=== PATIENT | male | born 1935 | race Caucasian/White ===

== ENCOUNTER 2016-08-22 23:27 | Observation (INO) | payer MEDICARE, BC ==
[2016-08-22] MEDS ORDERED: Sodium Chloride 0.9% 10 ML Syringe FLUSH PRN (23:28)
[2016-08-22] MEDS ORDERED: Ondansetron 4 MG/2 ML SDV IVPUSH ONE (23:30)
[2016-08-23] MEDS ORDERED: Sodium Chloride 0.9% 1,000 ML IV SCH ×2 (01:00→02:30)
--- NOTE | 2016-08-23 01:32 | EDM.PDOC ---
ED HPI GENERAL MEDICAL PROBLEM - General Chief Complaint: Cardiovascular Problem Stated Complaint: [facility] Time Seen by Provider: 08/22/16 23:28 Source of Information: Reports: Patient, EMS, Family History Limitations: Reports: Other (Dementia) - History of Present Illness INITIAL COMMENTS - FREE TEXT/NARRATIVE: This 81-year-old white male arrived by EMS. His son who is a retired family physician tells me that this patient was at home he had been doing well he suddenly said that he needed to go to the bathroom right away. He got up went to the bathroom it's not certain what the results were that when he came back he suddenly became weak and very sweaty. His son checked his pulse and found to be irregular as if he was having PVCs. There was no history of any nausea or vomiting although he vomited the same as she got to the ER. The patient is not able to give much of a history due to his dementia. There was no history of any chest pain. There is been no fever no history of abdominal pain no history of any urinary difficulties. Most of the history is given by his son who is not actually present when this episode happened. This patient moved to the area about 4 months ago and lives in assisted living. - Related Data Allergies Allergy/AdvReac Type Severity Reaction Status Date / Time No Known Allergies Allergy Verified 08/22/16 23:42 Home Meds: Home Meds Aspirin [Ecotrin] 81 mg PO DAILY 08/22/16 [History] Hydrochlorothiazide 25 mg PO DAILY 08/22/16 [History] Lisinopril 2.5 mg PO DAILY 08/22/16 [History] Multivitamin [Multi-Vitamin Daily] 1 tab PO DAILY 08/22/16 [History] Simvastatin [Zocor] 80 mg PO BEDTIME 08/22/16 [History] Donepezil HCl [Aricept] 10 mg PO BEDTIME 08/23/16 [History] Past Medical History HEENT History: Reports: Hard of Hearing Other HEENT History: without teeth, usually wears dentures Cardiovascular History: Reports: Arrhythmia, Heart Failure (History of congestive heart failure thought to be simply a IV fluid overload), Heart Murmur , High Cholesterol Respiratory History: Reports: PE (History of pulmonary emboli bilaterally after a hip injury) Other Respiratory History: bilateral pulmonary emboli Gastrointestinal History: Reports: GERD Hematologic History: Reports: Blood Transfusion(s) - Past Surgical History Musculoskeletal Surgical History: Reports: Hip Replacement, Other (See Below) Other Musculoskeletal Surgeries/Procedures:: traumatic injury left hip Social & Family History - Tobacco Use Smoking Status *Q: Never Smoker Second Hand Smoke Exposure: No - Caffeine Use Caffeine Use: Reports: Coffee - Recreational Drug Use Recreational Drug Use: No ED ROS GENERAL - Review of Systems Review Of Systems: See Below Constitutional: Reports: Weakness, Diaphoresis HEENT: Reports: No Symptoms Respiratory: Reports: No Symptoms Cardiovascular: Reports: No Symptoms Endocrine: Reports: No Symptoms GI/Abdominal: Reports: No Symptoms : Reports: No Symptoms Musculoskeletal: Reports: No Symptoms Skin: Reports: No Symptoms Neurological: Reports: No Symptoms Psychiatric: Reports: No Symptoms ED EXAM, GENERAL - Physical Exam Exam: See Below Exam Limited By: Other (Dementia) General Appearance: Alert, WD/WN (Initially a little bit pale looking but he vomited soon after arriving in the ER and afterwards looks normal.) Eye Exam: Bilateral Eye: PERRL Ears: Normal TMs Nose: Normal Inspection Throat/Mouth: Normal Inspection Head: Atraumatic Neck: Normal Inspection Respiratory/Chest: No Respiratory Distress, Normal Breath Sounds Cardiovascular: Regular Rate, Rhythm, Other (Moderate to frequent number of PVCs.) Peripheral Pulses: 2+: Radial (L), Radial (R), Posterior Tibial (L), Posterior Tibial (R) GI/Abdominal: Soft, Non-Tender, Other (Bladder not distended) Back Exam: Normal Inspection Extremities: Normal Inspection, Normal Range of Motion, Non-Tender, No Pedal Edema Neurological: Alert, CN II-XII Intact, Normal Reflexes, No Motor/Sensory Deficits Psychiatric: Normal Affect Skin Exam: Warm, Dry, Intact Course - Vital Signs Last Recorded V/S: Last Vital Signs Temp 35.7 C 08/22/16 23:36 Pulse 81 08/22/16 23:36 Resp 18 08/23/16 01:03 BP 117/78 08/23/16 01:03 Pulse Ox 95 08/23/16 01:03 - Orders/Labs/Meds Orders: Active Orders 24 hr Category Date Time Status EKG Documentation Completion [RC] ASDIRECTED Care 08/22/16 23:30 Active Chest 1V Frontal [CR] Urgent Exams 08/23/16 00:01 Taken CULTURE BLOOD [BC] Urgent Lab 08/23/16 01:15 Received CULTURE BLOOD [BC] Urgent Lab 08/23/16 01:19 Received UA W/MICROSCOPIC [URIN] Urgent Lab 08/22/16 23:28 Uncollected Sodium Chloride 0.9% [Normal Saline] 1,000 ml Med 08/23/16 01:00 Active IV ASDIRECTED Sodium Chloride 0.9% [Saline Flush] Med 08/22/16 23:28 Active 10 ml FLUSH ASDIRECTED PRN Blood Culture x2 Reflex Set [OM.PC] Urgent Oth 08/23/16 00:57 Ordered Saline Lock Insert [OM.PC] Urgent Oth 08/22/16 23:28 Ordered EKG 12 Lead [EK] Urgent Ther 08/22/16 23:28 Ordered Medication Orders Sodium Chloride (Normal Saline) 1,000 mls @ 85 mls/hr IV ASDIRECTED DUC Last Admin: 08/23/16 01:09 Dose: 85 mls/hr Sodium Chloride (Saline Flush) 10 ml FLUSH ASDIRECTED PRN PRN Reason: Keep Vein Open Last Admin: 08/22/16 23:44 Dose: 10 ml Labs: Laboratory Tests 08/22/16 08/22/16 08/22/16 Range/Units 23:35 23:35 23:35 WBC 14.6 H (4.5-11.0) K/uL RBC 4.47 (4.30-5.90) M/uL Hgb 14.3 (12.0-15.0) g/dL Hct 41.6 (40.0-54.0) % MCV 93 (80-98) fL MCH 32 H (27-31) pg MCHC 34 (32-36) % Plt Count 152 (150-400) K/uL Neut % (Auto) 86 H (36-66) % Lymph % (Auto) 7 L (24-44) % [place]renshaw % (Auto) 7 H (2-6) % Eos % (Auto) 1 L (2-4) % Baso % (Auto) 0 (0-1) % Sodium 139 L (140-148) mmol/L Potassium 3.6 (3.6-5.2) mmol/L Chloride 102 (100-108) mmol/L Carbon Dioxide 28 (21-32) mmol/L Anion Gap 12.6 (5.0-14.0) mmol/L BUN 14 (7-18) mg/dL Creatinine 0.9 (0.8-1.3) mg/dL Est Cr Clr Drug Dosing 68.26 mL/min Estimated GFR (MDRD) > 60 (>60) Glucose 181 H (74-106) mg/dL Lactic Acid 2.7 H (0.4-2.0) mmol/L Calcium 9.1 (8.5-10.1) mg/dL Total Bilirubin 0.5 (0.2-1.0) mg/dL AST 22 (15-37) U/L ALT 20 (12-78) U/L Alkaline Phosphatase 93 (46-116) U/L Troponin I < 0.017 (0.000-0.056) ng/mL Total Protein 6.9 (6.4-8.2) g/dL Albumin 3.5 (3.4-5.0) g/dL Globulin 3.4 (2.3-3.5) g/dL Albumin/Globulin Ratio 1.0 L (1.2-2.2) Meds: Medications Generic Name Dose Route Start Last Admin Trade Name Freq PRN Reason Stop Dose Admin Sodium Chloride 1,000 mls @ 85 mls/hr 08/23/16 01:00 08/23/16 01:09 Normal Saline IV 85 mls/hr ASDIRECTED DUC Administration Sodium Chloride 10 ml 08/22/16 23:28 08/22/16 23:44 Saline Flush FLUSH 10 ml ASDIRECTED PRN Administration Keep Vein Open Discontinued Medications Generic Name Dose Route Start Last Admin Trade Name Freq PRN Reason Stop Dose Admin Ondansetron HCl 4 mg 08/22/16 23:30 08/23/16 01:15 Zofran IVPUSH 08/22/16 23:31 Not Given ONETIME ONE - Radiology Interpretation Free Text/Narrative:: Chest x-ray shows no evidence of acute infiltrate. There is a small amount of atelectasis in the left base. Heart size normal. - Re-Assessments/Exams Free Text/Narrative Re-Assessment/Exam: 08/23/16 01:35 An EKG shows a sinus rhythm at 80 bpm there is a prolonged TN interval left axis deviation. There is a Q-wave in a the area. Possibly Q-wave in lead 3 there is nothing to suggest an acute MN. There is not an old EKG to compare with Treatment course when EMS unloaded the patient he was laid supine just for a brief moment and at that time he suddenly became nauseated and vomited a small amount. His head was then raised and his nausea has subsided. He never received and any anti-medic. Vital signs have remained stable while here in the ER. We've not been able to obtain a urinalysis yet. He may need to be catheterized. I spoke with Dr. Willard. My impression is that there are signs that this patient may be septic. Blood cultures have been done but antibiotics have not been started. Departure - Departure Time of Disposition: 01:48 Disposition: Admitted As Inpatient 66 Condition: Fair Clinical Impression: Near syncope, Sepsis Referrals: PCP,None [Primary Care Provider] - Forms: ED Department Discharge - My Orders Last 24 Hours: My Active Orders 08/22/16 23:28 UA W/MICROSCOPIC [URIN] Urgent Sodium Chloride 0.9% [Saline Flush] 10 ml FLUSH ASDIRECTED PRN Saline Lock Insert [OM.PC] Urgent EKG 12 Lead [EK] Urgent 08/22/16 23:30 EKG Documentation Completion [RC] ASDIRECTED 08/23/16 00:01 Chest 1V Frontal [CR] Urgent 08/23/16 00:57 Blood Culture x2 Reflex Set [OM.PC] Urgent 08/23/16 01:00 Sodium Chloride 0.9% [Normal Saline] 1,000 ml IV ASDIRECTED 08/23/16 01:15 CULTURE BLOOD [BC] Urgent 08/23/16 01:19 CULTURE BLOOD [BC] Urgent - Assessment/Plan Last 24 Hours: My Active Orders 08/22/16 23:28 UA W/MICROSCOPIC [URIN] Urgent Sodium Chloride 0.9% [Saline Flush] 10 ml FLUSH ASDIRECTED PRN Saline Lock Insert [OM.PC] Urgent EKG 12 Lead [EK] Urgent 08/22/16 23:30 EKG Documentation Completion [RC] ASDIRECTED 08/23/16 00:01 Chest 1V Frontal [CR] Urgent 08/23/16 00:57 Blood Culture x2 Reflex Set [OM.PC] Urgent 08/23/16 01:00 Sodium Chloride 0.9% [Normal Saline] 1,000 ml IV ASDIRECTED 08/23/16 01:15 CULTURE BLOOD [BC] Urgent 08/23/16 01:19 CULTURE BLOOD [BC] Urgent
[2016-08-23] MEDS ORDERED: Lidocaine 2% Jelly 10 ML Urojet MUCMEM ONE (02:02)
[2016-08-23] MEDS ORDERED: Lidocaine 2% Jelly 10 ML Urojet ONE (02:02)
[2016-08-23] MEDS ORDERED: Acetaminophen 325 MG Tab PO PRN (02:27)
[2016-08-23] MEDS ORDERED: cefTRIAXone 1 GM in Sodium Chloride 0.9% 50 ML IV SCH ×2 (02:45→22:00)
--- NOTE | 2016-08-23 07:41 | HP ---
CHIEF COMPLAINT: Shaking. HISTORY OF PRESENT ILLNESS: An 81-year-old, who lives in assisted living, he has been there for about 2 months from [place]. He apparently got up to go to the bathroom, sounds like urination, and all of a sudden started shaking like he had chills and the facility did call family. Son-in-law, who is a retired family physician, came in and sounds like he had some dry heaves and shaking but started getting better but then with the dry heaving and he thought maybe he had an irregular heartbeat which was new. He thought he probably should come into the emergency room for further evaluation came into the emergency room where he was evaluated by the emergency room physician and felt to be possibly septic, I was asked by the patient for further evaluation and treatment. The patient denies really any pain. When I asked him, he said that when it happened maybe he had pain in the top of his head and felt like he was going to pass out. No chest pain. PAST MEDICAL HISTORY: Bilateral pulmonary embolisms in the past, history of hypertension, hyperlipidemia, gastroesophageal reflux disease, and progressive dementia. MEDICATIONS: Aspirin 81 mg daily, benazepril 10 mg at bedtime, hydrochlorothiazide 25 mg daily, lisinopril 2.5 mg daily, apparently they tried 5 mg but could not tolerate because of his blood pressure. Multivitamin daily. Simvastatin 80 mg daily. ALLERGIES: NO KNOWN DRUG ALLERGIES. SOCIAL HISTORY: Has never smoked. I do not believe this and he report of any recent alcohol consumption. FAMILY HISTORY: Unknown. REVIEW OF SYSTEMS: Currently, denies headache, sounds like maybe he had a headache at the time of this happening. No chest pain. A little bit of shortness of breath. Had dry heaves and did throw up once he got here. No report of any diarrhea or constipation. Denies any dysuria. According to the blood reported in his urine. He does have chronic swelling in his legs. No specific neurologic complaints other than his dementia. PHYSICAL EXAMINATION: VITAL SIGNS: Temp 35.7, pulse 81, blood pressure 141/87, respirations 20, O2 saturation 94% on room air. GENERAL: The patient is pleasantly confused. HEENT: Wears hearing aids in both ears. Pharynx is clear. Wears dentures which are present. NECK: Supple. No obvious thyromegaly, JVD, or carotid bruits. LUNGS: Clear. HEART: Heart sounds regular with a subtle systolic murmur which apparently he has had before. ABDOMEN: Soft, nontender, no mass. No organomegaly palpated. EXTREMITIES: He does have mild edema in his ankles. No pain in his calves. SKIN: Negative. DIAGNOSTICS: EKG, it looks like it is regular OH interval. Labs: Urinalysis they had to get a catherized sample. It showed some slight ketones but rbc's and white blood cells were negative, blood culture is pending. White count is elevated at 14.6, platelets 152,000, hemoglobin 14.3 with 86% neutrophils. Sodium 139, potassium 3.6, chloride 102, BUN 14, creatinine 0.9. Liver functions were normal. Glucose was 181. Lactic acid was elevated at 2.7. ASSESSMENT: 1. Unwitnessed episode of shaking, possibly chilled with lightheadedness, but with elevated white count that he possibly had an infection, although his chest x-ray looks okay, urinalysis looks okay. We will start him on Rocephin. Awaiting culture results. Watch him on telemetry because there was some report of possible irregular heartbeat. We did talk to the son-in-law about code status, it sounds like he did not really want anything done, but I do not know if they have anything formally said. 2. Underlying dementia which makes history taking quite difficult. We will admit him under observation. Anticipate less than 2 midnight stays. We will turn his care over to the hospitalist service in the morning. Eric Willard MD /[id number]
[2016-08-23] MEDS ORDERED: Aspirin 81 MG Tab.EC PO SCH (09:00)
[2016-08-23] MEDS ORDERED: Lisinopril 2.5 MG Tab PO SCH (09:00)
[2016-08-23] MEDS ORDERED: Hydrochlorothiazide 25 MG Tab PO SCH (09:00)
--- NOTE | 2016-08-23 09:02 | CR ---
Chest 1V Frontal HISTORY: pain COMPARISON: None FINDINGS: There is mild nonspecific elevation left hemidiaphragm with adjacent mild linear atelectasis or scar ring. Lungs appear otherwise clear and normally aerated. Cardiomediastinal silhouette is within norm al limits. Mild atherosclerotic calcification can be seen in the aortic arch. No vascular redistribu tion or pleural fluid can be seen. Bony structures and soft tissues are unremarkable. IMPRESSION: Nonspecific elevation left hemidiaphragm with mild adjacent linear atelectasis or scarring. No other acute chest abnormality is identified.
[2016-08-23 11:09] VITALS: BP 98/64
--- NOTE | 2016-08-23 11:35 | PCM.DCSUM1 ---
Discharge Summary - Hospital Course Brief History: 81-year-old male with history of Alzheimer's dementia and hypertension who presented with an episode of weakness, diaphoresis and irregular heartbeat. He was admitted for observation with leukocytosis and mildly elevated lactic acid but no evidence for infection. - Discharge Data Discharge Date: 08/23/16 Discharge Disposition: Home, Self-Care 01 Condition: Good - Discharge Diagnosis/Problem(s) (1) Near syncope SNOMED Code(s): 883796123 ICD Code: R55 - SYNCOPE AND COLLAPSE Status: Acute (2) Sepsis SNOMED Code(s): 53540842 ICD Code: A41.9 - SEPSIS, UNSPECIFIED ORGANISM Status: Ruled-out - Patient Summary/Data Hospital Course: Rodrigo presented to the emergency room after an episode of tremulousness, dry heaves and possibly an irregular heart rhythm. Workup in the emergency room was reassuring other than a mild leukocytosis and a mildly elevated lactic acid. He was not tachycardic or hypotensive. There is no evidence for infection at the time of presentation with a clear urine, normal abdominal examination and clear chest x-ray. He was started on some IV fluids and empirically given a dose of ceftriaxone and admitted to the hospital. Overnight following admission his vital signs have all been stable with the exception of one blood pressure that was on the low side of normal. He has not had any fevers. His heart rate has been normal and his telemetry has been unremarkable. Symptomatically the patient feels well and does not have nausea, shortness of breath or abdominal pain. It has become apparent that he does not drink much water and some mild dehydration and/or a vasovagal episode could explain his symptoms which resolved without much in the way of intervention. His mildly elevated white count could be explained by the stress of the episode and his mildly elevated lactic acid could be explained by mild dehydration. His lactic acid level is trending down and again there is no evidence for infection. I reviewed all of these findings with the patient and his family. They're agreeable to discharge home at this time since he is doing well and there is no evidence for pathology at this point. I did encourage him to drink more liquids other than coffee. Stopping his hydrochlorothiazide may be useful if he continues to have difficulty with dehydration/hypoperfusion. He is interested in establishing care with Dr. Willard and will be following up with him in approximately 1 week. - Patient Instructions Diet: Regular Diet as Tolerated, Drink 8-10+ Glasses/Day Activity: As Tolerated Showering/Bathing: May Shower Notify Provider of: Fever, Increased Pain, Nausea and/or Vomiting Other/Special Instructions: 1. You were in the hospital after an episode of near -syncope. There was no evidence for infection or abnormal heart rhythm. I suspect that you may have been mildly dehydrated or possibly had a vasovagal episode. At this point I do not recommend any additional treatment such as antibiotics or medication changes. I do recommend that you do your best to stay hydrated by trying to drink 8-10 glasses of water each day. 2. Please seek medical attention if you develop fever greater than 101, have recurrence of the symptoms that brought you into the emergency room or you develop sudden onset of chest pain or shortness of breath. - Discharge Plan Home Medications: Home Meds Aspirin [Ecotrin] 81 mg PO DAILY 08/22/16 [History] Hydrochlorothiazide 25 mg PO DAILY 08/22/16 [History] Lisinopril 2.5 mg PO DAILY 08/22/16 [History] Multivitamin [Multi-Vitamin Daily] 1 tab PO DAILY 08/22/16 [History] Simvastatin [Zocor] 80 mg PO BEDTIME 08/22/16 [History] Donepezil HCl [Aricept] 10 mg PO BEDTIME 08/23/16 [History] Patient Handouts: Near-Syncope, Dehydration, Adult, [id number] Referrals: Eric Willard MD [Primary Care Provider] - (1 week - f/u hospital stay for near syncope/establish care) - Discharge Summary/Plan Comment DC Time >30 min.: No (25) - Patient Data Vitals - Most Recent: Last Vital Signs Temp 36.7 C 08/23/16 10:43 Pulse 69 08/23/16 10:43 Resp 18 08/23/16 10:43 BP 98/64 08/23/16 10:43 Pulse Ox 94 L 08/23/16 10:43 Weight - Most Recent: 83.733 kg I&O - Last 24 hours: Intake & Output 08/22/16 08/23/16 08/23/16 22:59 06:59 14:59 Intake Total 550 240 Output Total 200 Balance 350 240 Lab Results - Last 24 hrs: Laboratory Results - last 24 hr 08/23/16 08/23/16 Range/Units 10:12 10:12 WBC 9.4 (4.5-11.0) K/uL RBC 4.35 (4.30-5.90) M/uL Hgb 13.8 (12.0-15.0) g/dL Hct 40.5 (40.0-54.0) % MCV 93 (80-98) fL MCH 32 H (27-31) pg MCHC 34 (32-36) % Plt Count 254 (150-400) K/uL Lactic Acid 2.5 H (0.4-2.0) mmol/L Med Orders - Current: Current Medications Acetaminophen (Tylenol) 650 mg PO Q4H PRN PRN Reason: Pain (Mild 1-3)/fever Aspirin (Halfprin) 81 mg PO DAILY REPLACED BY [facility] Last Admin: 08/23/16 10:31 Dose: 81 mg Donepezil HCl (Aricept) 10 mg PO BEDTIME REPLACED BY [facility] Hydrochlorothiazide (Hydrochlorothiazide) 25 mg PO DAILY REPLACED BY [facility] Last Admin: 08/23/16 08:28 Dose: Not Given Sodium Chloride (Normal Saline) 1,000 mls @ 125 mls/hr IV ASDIRECTED REPLACED BY [facility] Ceftriaxone Sodium 1 gm/ (Sodium Chloride) 50 mls @ 100 mls/hr IV Q24H REPLACED BY [facility] Lisinopril (Prinivil) 2.5 mg PO DAILY REPLACED BY [facility] Last Admin: 08/23/16 08:28 Dose: Not Given Simvastatin (Zocor) 80 mg PO BEDTIME REPLACED BY [facility] Sodium Chloride (Saline Flush) 10 ml FLUSH ASDIRECTED PRN PRN Reason: Keep Vein Open Last Admin: 08/22/16 23:44 Dose: 10 ml Discontinued Medications Sodium Chloride (Normal Saline) 1,000 mls @ 85 mls/hr IV ASDIRECTED REPLACED BY [facility] Last Admin: 08/23/16 01:09 Dose: 85 mls/hr Ceftriaxone Sodium 1 gm/ (Sodium Chloride) 50 mls @ 100 mls/hr IV Q24H REPLACED BY [facility] Last Admin: 08/23/16 03:13 Dose: 100 mls/hr Lidocaine HCl (Xylocaine 2% Jelly) Confirm Administered Dose 10 ml .ROUTE .STK- MED ONE Stop: 08/23/16 02:03 Last Admin: 08/23/16 02:17 Dose: Not Given Lidocaine HCl (Xylocaine 2% Jelly) 10 ml MUCMEM ONETIME ONE Stop: 08/23/16 02:03 Last Admin: 08/23/16 02:17 Dose: 10 ml Ondansetron HCl (Zofran) 4 mg IVPUSH ONETIME ONE Stop: 08/22/16 23:31 Last Admin: 08/23/16 01:15 Dose: Not Given *Q Meaningful Use (DIS) - VTE *Q VTE Criteria *Q: - Stroke *Q Stroke Criteria *Q: - AMI *Q AMI Criteria *Q:
[2016-08-23] MEDS ORDERED: Donepezil 10 MG Tab PO SCH (21:00)
[2016-08-23] MEDS ORDERED: Simvastatin 20 MG Tab PO SCH (21:00)
== END 2016-08-23 12:10 | disposition home or self-care (01) ==
LOC: JP.ED 23:27 → JP.MS 08-23 02:27
PROVIDERS: ADMIT Family Medicine; ATTEND Internal Medicine
DX: R55 Syncope and collapse (principal); A41.9 Sepsis, unspecified organism; F03.90 Unspecified dementia, unspecified severity, without behavioral disturbance, psychotic disturbance, mood disturbance, and anxiety; D72.829 Elevated white blood cell count, unspecified; R74.0 Nonspecific elevation of levels of transaminase and lactic acid dehydrogenase [LDH]; E86.0 Dehydration; Z79.82 Long term (current) use of aspirin; Z79.899 Other long term (current) drug therapy; E78.5 Hyperlipidemia, unspecified; K21.9 Gastro-esophageal reflux disease without esophagitis; I11.0 Hypertensive heart disease with heart failure; I50.9 Heart failure, unspecified; Z96.649 Presence of unspecified artificial hip joint
CPT/HCPCS: 36415; 71010; 80053; 81001; 83605; 84484; 85025; 85027; 87040; 87086; 93005; 96361; 96365; 99285; A9270; G0378; J0696; J7040; J7050; 93010; 96360; 99235; 99284

== ENCOUNTER 2018-03-12 10:20 | Emergency (ER) | payer MEDICARE, BC ==
[2018-03-12] MEDS ORDERED: Sodium Chloride 0.9% 1,000 ML IV SCH ×2 (10:30→11:30)
[2018-03-12] MEDS ORDERED: Sodium Chloride 0.9% 250 ML IV SCH (13:30)
--- NOTE | 2018-03-12 13:35 | EDM.PDOC ---
ED HPI GENERAL MEDICAL PROBLEM - General Chief Complaint: General Stated Complaint: VIA NORTH Time Seen by Provider: 03/12/18 10:25 Source of Information: Reports: Patient History Limitations: Reports: No Limitations - History of Present Illness INITIAL COMMENTS - FREE TEXT/NARRATIVE: Pt arrived with a history of being slumped in his chair and not responding as usual. He was found to have a very low bp. He has not been vonmiting or has not been ill otherwise. Onset: Today, Sudden Duration: Minutes:, Other ( bp was 60/40. ) Location: Reports: Other (low bp, ) Associated Symptoms: Reports: Other (pt was bearing responding. ) Denies Pain Score (Numeric/FACES): 0 - Related Data Allergies Allergy/AdvReac Type Severity Reaction Status Date / Time No Known Allergies Allergy Verified 03/12/18 10:46 Home Meds: Home Meds Aspirin [Ecotrin] 81 mg PO DAILY 08/22/16 [History] Hydrochlorothiazide 25 mg PO DAILY 08/22/16 [History] Lisinopril 2.5 mg PO DAILY 08/22/16 [History] Multivitamin [Multi-Vitamin Daily] 1 tab PO DAILY 08/22/16 [History] Donepezil HCl [Aricept] 10 mg PO BEDTIME 08/23/16 [History] Naproxen Sodium [Aleve] 220 mg PO BID 03/12/18 [History] Ranitidine HCl [Zantac] 150 mg PO BID 03/12/18 [History] Past Medical History HEENT History: Reports: Hard of Hearing Other HEENT History: without teeth, usually wears dentures Cardiovascular History: Reports: Arrhythmia, Heart Failure, Heart Murmur, High Cholesterol Respiratory History: Reports: PE Other Respiratory History: bilateral pulmonary emboli Gastrointestinal History: Reports: GERD Psychiatric History: Reports: Dementia Hematologic History: Reports: Blood Transfusion(s) - Past Surgical History Musculoskeletal Surgical History: Reports: Hip Replacement, Other (See Below) Other Musculoskeletal Surgeries/Procedures:: traumatic injury left hip Social & Family History - Family History Family Medical History: Unobtainable - Tobacco Use Smoking Status *Q: Never Smoker Second Hand Smoke Exposure: No - Caffeine Use Caffeine Use: Reports: Coffee - Recreational Drug Use Recreational Drug Use: No ED ROS GENERAL - Review of Systems Review Of Systems: See Below Constitutional: Reports: Weakness HEENT: Reports: No Symptoms Respiratory: Reports: No Symptoms Cardiovascular: Reports: Other (low bp in the 60 systolic range. ) Endocrine: Reports: No Symptoms GI/Abdominal: Reports: No Symptoms : Reports: No Symptoms Musculoskeletal: Reports: No Symptoms Skin: Reports: No Symptoms Neurological: Reports: Trouble Speaking, Weakness, Other (pt was bearly responding. ) ED EXAM, GENERAL - Physical Exam Exam: See Below Free Text/Narrative:: pt has a history of dementia and lives with his who is more confused. He was found slumped in his chair and not reponding normally. He was found to have a bp in 60 systolic range. Exam Limited By: Altered Mental Status General Appearance: Alert, No Apparent Distress, Other ( bp was low. ) Ears: Normal TMs Nose: Normal Inspection Throat/Mouth: Normal Inspection Head: Atraumatic Neck: Normal Inspection Respiratory/Chest: No Respiratory Distress Cardiovascular: Regular Rate, Rhythm, Other ( bp was found to be very low. ) GI/Abdominal: Soft, Non-Tender (Male) Exam: Deferred Rectal (Males) Exam: Deferred Back Exam: Normal Inspection Extremities: Normal Inspection Neurological: Alert, Confused Course - Vital Signs Last Recorded V/S: Last Vital Signs Temp 35.3 C 03/12/18 16:00 Pulse 95 03/12/18 16:00 Resp 17 03/12/18 16:00 BP 133/64 03/12/18 16:00 Pulse Ox 95 03/12/18 16:00 - Orders/Labs/Meds Labs: Laboratory Tests 03/12/18 03/12/18 03/12/18 Range/Units 10:32 10:32 10:32 WBC 8.7 (4.5-11.0) K/uL RBC 4.48 (4.30-5.90) M/uL Hgb 14.1 (12.0-15.0) g/dL Hct 42.9 (40.0-54.0) % MCV 96 (80-98) fL MCH 32 H (27-31) pg MCHC 33 (32-36) % Plt Count 324 (150-400) K/uL Neut % (Auto) 74 H (36-66) % Lymph % (Auto) 15 L (24-44) % [place] % (Auto) 9 H (2-6) % Eos % (Auto) 1 L (2-4) % Baso % (Auto) 0 (0-1) % Sodium 138 L (140-148) mmol/L Potassium 4.3 (3.6-5.2) mmol/L Chloride 99 L (100-108) mmol/L Carbon Dioxide 30 (21-32) mmol/L Anion Gap 13.3 (5.0-14.0) mmol/L BUN 9 (7-18) mg/dL Creatinine 1.1 (0.8-1.3) mg/dL Est Cr Clr Drug Dosing TNP Estimated GFR (MDRD) > 60 (>60) Glucose 153 H (74-106) mg/dL Calcium 9.5 (8.5-10.1) mg/dL Total Bilirubin 0.6 (0.2-1.0) mg/dL AST 19 (15-37) U/L ALT 25 (12-78) U/L Alkaline Phosphatase 79 (46-116) U/L Troponin I < 0.017 (0.000-0.056) ng/mL Total Protein 7.0 (6.4-8.2) g/dL Albumin 3.4 (3.4-5.0) g/dL Globulin 3.6 H (2.3-3.5) g/dL Albumin/Globulin Ratio 0.9 L (1.2-2.2) Urine Color Urine Appearance Urine pH (4.5-8.0) Ur Specific [place] (1.008-1.030) Urine Protein (NEGATIVE) mg/dL Urine Glucose (UA) (NEGATIVE) mg/dL Urine Ketones (NEGATIVE) mg/dL Urine Occult Blood (NEGATIVE) Urine Nitrite (NEGAITVE) Urine Bilirubin (NEGATIVE) Urine Urobilinogen (NORMAL) mg/dL Ur Leukocyte Esterase (NEGATIVE) Urine RBC (0-5) Urine WBC (0-5) Ur Epithelial Cells Amorphous Sediment Urine Bacteria Urine Mucus 03/12/18 Range/Units 13:43 WBC (4.5-11.0) K/uL RBC (4.30-5.90) M/uL Hgb (12.0-15.0) g/dL Hct (40.0-54.0) % MCV (80-98) fL MCH (27-31) pg MCHC (32-36) % Plt Count (150-400) K/uL Neut % (Auto) (36-66) % Lymph % (Auto) (24-44) % [place] % (Auto) (2-6) % Eos % (Auto) (2-4) % Baso % (Auto) (0-1) % Sodium (140-148) mmol/L Potassium (3.6-5.2) mmol/L Chloride (100-108) mmol/L Carbon Dioxide (21-32) mmol/L Anion Gap (5.0-14.0) mmol/L BUN (7-18) mg/dL Creatinine (0.8-1.3) mg/dL Est Cr Clr Drug Dosing Estimated GFR (MDRD) (>60) Glucose (74-106) mg/dL Calcium (8.5-10.1) mg/dL Total Bilirubin (0.2-1.0) mg/dL AST (15-37) U/L ALT (12-78) U/L Alkaline Phosphatase (46-116) U/L Troponin I (0.000-0.056) ng/mL Total Protein (6.4-8.2) g/dL Albumin (3.4-5.0) g/dL Globulin (2.3-3.5) g/dL Albumin/Globulin Ratio (1.2-2.2) Urine Color Yellow Urine Appearance Clear Urine pH 7.0 (4.5-8.0) Ur Specific [place] 1.010 (1.008-1.030) Urine Protein Negative (NEGATIVE) mg/dL Urine Glucose (UA) Negative (NEGATIVE) mg/dL Urine Ketones Negative (NEGATIVE) mg/dL Urine Occult Blood Negative (NEGATIVE) Urine Nitrite Negative (NEGAITVE) Urine Bilirubin Negative (NEGATIVE) Urine Urobilinogen Normal (NORMAL) mg/dL Ur Leukocyte Esterase Negative (NEGATIVE) Urine RBC 0-5 (0-5) Urine WBC Not seen (0-5) Ur Epithelial Cells Not seen Amorphous Sediment Few Urine Bacteria Not seen Urine Mucus Few Meds: Medications Discontinued Medications Generic Name Dose Route Start Last Admin Trade Name Freq PRN Reason Stop Dose Admin Sodium Chloride 1,000 mls @ 999 mls/hr 03/12/18 10:30 03/12/18 11:18 Normal Saline IV 999 mls/hr ASDIRECTED DUC Administration Sodium Chloride 1,000 mls @ 500 mls/hr 03/12/18 11:30 03/12/18 11:40 Normal Saline IV 500 mls/hr ASDIRECTED DUC Administration Sodium Chloride 250 mls @ 250 mls/hr 03/12/18 13:30 Normal Saline IV ASDIRECTED DUC - Re-Assessments/Exams Free Text/Narrative Re-Assessment/Exam: 03/12/18 15:49 bp remains stable. He is alert. He has had lunch. His urine is clear. Wuill continue to push fluids. Departure - Departure Time of Disposition: 16:20 Disposition: Home, Self-Care 01 Condition: Fair Clinical Impression: Hypotension, Dehydration - Discharge Information Instructions: Hypotension, [id number], Dehydration, Elderly, [id number] Referrals: PCP,None [Primary Care Provider] - Forms: ED Department Discharge Care Plan Goals: push fluids, stop lisinopril, reduce hydrochothiazde to 12.5 mg--1/2 tab. cont other meds the same.
[2018-03-12 14:01] VITALS: BP 133/64
== END 2018-03-12 16:17 | disposition home or self-care (01) ==
LOC: JP.ED 10:20
DX: I95.9 Hypotension, unspecified (principal); E86.0 Dehydration; Z79.899 Other long term (current) drug therapy
CPT/HCPCS: 36415; 51798; 80053; 81001; 84484; 85025; 93005; 96360; 96361; 99284; J7030

== ENCOUNTER 2018-03-17 11:15 | Emergency (ER) | payer MEDICARE, BC ==
--- NOTE | 2018-03-17 11:47 | EDM.PDOC ---
ED HPI GENERAL MEDICAL PROBLEM - General Chief Complaint: General Stated Complaint: VIA NORTH Time Seen by Provider: 03/17/18 11:29 - History of Present Illness INITIAL COMMENTS - FREE TEXT/NARRATIVE: 83 years old male patient with history of dementia brought in from assisted living because of low blood pressure today. 80 systolic. History collected from the patient and also from the assisted living staff. Staff stated also that he was slightly more confused this morning. No history of trauma or injury or falls. Patient was here a few days ago for similar presentation and low blood pressure and his lisinopril was discontinued and also his hydrochlorothiazide dose was decreased to half. No report of any chest pain or shortness breath. Denies any cough or fever. Denies any abdominal pain diarrhea or constipation. Denies any urinary symptom. Denies any focal weakness or numbness anywhere. No dizziness. Patient keep seen on feeling very well. - Related Data Allergies Allergy/AdvReac Type Severity Reaction Status Date / Time No Known Allergies Allergy Verified 03/12/18 10:46 Home Meds: Home Meds Aspirin [Ecotrin] 81 mg PO DAILY 08/22/16 [History] Hydrochlorothiazide 12.5 mg PO DAILY 08/22/16 [History] Multivitamin [Multi-Vitamin Daily] 1 tab PO DAILY 08/22/16 [History] Donepezil HCl [Aricept] 10 mg PO BEDTIME 08/23/16 [History] Naproxen Sodium [Aleve] 220 mg PO BID 03/12/18 [History] Ranitidine HCl [Zantac] 150 mg PO BID 03/12/18 [History] Past Medical History HEENT History: Reports: Hard of Hearing Other HEENT History: without teeth, usually wears dentures Cardiovascular History: Reports: Arrhythmia, Heart Failure, Heart Murmur, High Cholesterol Respiratory History: Reports: PE Other Respiratory History: bilateral pulmonary emboli Gastrointestinal History: Reports: GERD Psychiatric History: Reports: Dementia Hematologic History: Reports: Blood Transfusion(s) - Past Surgical History Musculoskeletal Surgical History: Reports: Hip Replacement, Other (See Below) Other Musculoskeletal Surgeries/Procedures:: traumatic injury left hip Social & Family History - Family History Family Medical History: Unobtainable - Tobacco Use Smoking Status *Q: Never Smoker - Caffeine Use Caffeine Use: Reports: Coffee - Recreational Drug Use Recreational Drug Use: No ED ROS GENERAL - Review of Systems Review Of Systems: ROS reveals no pertinent complaints other than HPI. ED EXAM, GENERAL - Physical Exam Exam: See Below General Appearance: Alert, WD/WN, No Apparent Distress, Other (Baseline dementia ). No: Lethargic, Mild Distress Ears: Normal External Exam Nose: Normal Inspection, Normal Mucosa Throat/Mouth: Normal Inspection, Normal Lips Head: Atraumatic, Normocephalic. No: Facial Swelling, Facial Tenderness, Sinus Tenderness Respiratory/Chest: No Respiratory Distress, Lungs Clear, Normal Breath Sounds, No Accessory Muscle Use, Chest Non-Tender. No: Respiratory Distress, Crackles, Rales, Rhonchi, Wheezing Cardiovascular: Normal Peripheral Pulses, Regular Rate, Rhythm, No Edema, No Gallop, No Murmur, No Rub. No: Bradycardia, Tachycardia GI/Abdominal: Normal Bowel Sounds, Soft, Non-Tender, No Organomegaly, No Distention. No: Distended, Tender Extremities: Normal Inspection, Normal Range of Motion. No: Pedal Edema, Joint Swelling, Redness Neurological: Alert, Oriented, CN II-XII Intact, Normal Cognition, No Motor/ Sensory Deficits. No: Confused, Sensory/Motor Deficit Psychiatric: Normal Affect, Normal Mood Skin Exam: Warm, Dry, Intact, Normal Color Course - Vital Signs Text/Narrative:: Patient was seen and examined shortly after arrival. Stable. EKG lab and imaging reviewed with the patient. No significant acute abnormalities except for elevated lactic acid. Most likely related to hypotension. Patient had one episode of loose stool here in the department which could be the cause for his low blood pressure. No sign of sepsis or severe sepsis or septic shock at this point. No sign of infection anywhere. Patient chest x-ray shows no acute abnormalities. Urine is clear. He is afebrile. Blood pressure markedly improved 103/66 after 1 L normal saline bolus, hydration. Patient continued to be hemodynamically stable, feeding well and completely symptomatic. Was not able to give another stool sample for stool studies that can be done as an outpatient [facility] comparing it back if he continued to have diarrhea. Also was given instructions to hold his hydrochlorothiazide for any pressure systolic greater than 100. Also blood pressure diary and continuous monitoring and completely discontinue his hydrochlorothiazide if his blood pressure continued to be in a softer side. Case was discussed with the patient son over the phone. He is a retired physician. And he requested to completely discontinue his hydrochlorothiazide for now. Patient is feeling well. Stable for discharge back to his assisted living. Last Recorded V/S: Last Vital Signs Temp 35.6 C 03/17/18 11:22 Pulse 82 03/17/18 15:47 Resp 14 03/17/18 13:19 BP 103/61 03/17/18 15:47 Pulse Ox 97 03/17/18 13:19 - Orders/Labs/Meds Orders: Active Orders 24 hr Category Date Time Status Cardiac Monitoring [RC] .As Directed Care 03/17/18 11:30 Active EKG Documentation Completion [RC] ASDIRECTED Care 03/17/18 11:31 Active EKG 12 Lead [EK] Stat Ther 03/17/18 11:31 Ordered Labs: Laboratory Tests 03/17/18 03/17/18 03/17/18 Range/Units 11:49 11:49 11:49 WBC 8.6 (4.5-11.0) K/uL RBC 4.40 (4.30-5.90) M/uL Hgb 14.1 (12.0-15.0) g/dL Hct 42.2 (40.0-54.0) % MCV 96 (80-98) fL MCH 32 H (27-31) pg MCHC 33 (32-36) % Plt Count 286 (150-400) K/uL Neut % (Auto) 77 H (36-66) % Lymph % (Auto) 9 L (24-44) % [place] % (Auto) 12 H (2-6) % Eos % (Auto) 1 L (2-4) % Baso % (Auto) 0 (0-1) % Sodium 140 (140-148) mmol/L Potassium 3.8 (3.6-5.2) mmol/L Chloride 101 (100-108) mmol/L Carbon Dioxide 30 (21-32) mmol/L Anion Gap 9.0 (5.0-14.0) mmol/L BUN 11 (7-18) mg/dL Creatinine 0.9 (0.8-1.3) mg/dL Est Cr Clr Drug Dosing TNP Estimated GFR (MDRD) > 60 (>60) Glucose 151 H (74-106) mg/dL Lactic Acid 2.5 H (0.4-2.0) mmol/L Calcium 9.0 (8.5-10.1) mg/dL Total Bilirubin 0.4 (0.2-1.0) mg/dL AST 17 (15-37) U/L ALT 22 (12-78) U/L Alkaline Phosphatase 76 (46-116) U/L Troponin I < 0.017 (0.000-0.056) ng/mL NT-Pro-B Natriuret Pep 476 H (5-450) pg/mL Total Protein 6.5 (6.4-8.2) g/dL Albumin 3.0 L (3.4-5.0) g/dL Globulin 3.5 (2.3-3.5) g/dL Albumin/Globulin Ratio 0.9 L (1.2-2.2) Urine Color Urine Appearance Urine pH (4.5-8.0) Ur Specific [place] (1.008-1.030) Urine Protein (NEGATIVE) mg/dL Urine Glucose (UA) (NEGATIVE) mg/dL Urine Ketones (NEGATIVE) mg/dL Urine Occult Blood (NEGATIVE) Urine Nitrite (NEGAITVE) Urine Bilirubin (NEGATIVE) Urine Urobilinogen (NORMAL) mg/dL Ur Leukocyte Esterase (NEGATIVE) Urine RBC (0-5) Urine WBC (0-5) Ur Epithelial Cells Amorphous Sediment Urine Bacteria Urine Mucus Urine Other 03/17/18 03/17/18 Range/Units 15:08 15:11 WBC (4.5-11.0) K/uL RBC (4.30-5.90) M/uL Hgb (12.0-15.0) g/dL Hct (40.0-54.0) % MCV (80-98) fL MCH (27-31) pg MCHC (32-36) % Plt Count (150-400) K/uL Neut % (Auto) (36-66) % Lymph % (Auto) (24-44) % [place] % (Auto) (2-6) % Eos % (Auto) (2-4) % Baso % (Auto) (0-1) % Sodium (140-148) mmol/L Potassium (3.6-5.2) mmol/L Chloride (100-108) mmol/L Carbon Dioxide (21-32) mmol/L Anion Gap (5.0-14.0) mmol/L BUN (7-18) mg/dL Creatinine (0.8-1.3) mg/dL Est Cr Clr Drug Dosing Estimated GFR (MDRD) (>60) Glucose (74-106) mg/dL Lactic Acid 1.9 (0.4-2.0) mmol/L Calcium (8.5-10.1) mg/dL Total Bilirubin (0.2-1.0) mg/dL AST (15-37) U/L ALT (12-78) U/L Alkaline Phosphatase (46-116) U/L Troponin I (0.000-0.056) ng/mL NT-Pro-B Natriuret Pep (5-450) pg/mL Total Protein (6.4-8.2) g/dL Albumin (3.4-5.0) g/dL Globulin (2.3-3.5) g/dL Albumin/Globulin Ratio (1.2-2.2) Urine Color Yellow Urine Appearance Clear Urine pH 7.0 (4.5-8.0) Ur Specific [place] 1.010 (1.008-1.030) Urine Protein Negative (NEGATIVE) mg/dL Urine Glucose (UA) Normal (NEGATIVE) mg/dL Urine Ketones Negative (NEGATIVE) mg/dL Urine Occult Blood Trace (NEGATIVE) Urine Nitrite Negative (NEGAITVE) Urine Bilirubin Negative (NEGATIVE) Urine Urobilinogen Normal (NORMAL) mg/dL Ur Leukocyte Esterase Negative (NEGATIVE) Urine RBC 0-5 (0-5) Urine WBC Not seen (0-5) Ur Epithelial Cells Not seen Amorphous Sediment Not seen Urine Bacteria Not seen Urine Mucus Moderate Urine Other Meds: Medications Discontinued Medications Generic Name Dose Route Start Last Admin Trade Name Mel PRN Reason Stop Dose Admin Sodium Chloride 500 mls @ 250 mls/hr 03/17/18 13:21 03/17/18 13:25 Normal Saline IV 03/17/18 15:20 250 mls/hr .BOLUS STA Administration Departure - Departure Time of Disposition: 17:26 Disposition: Home, Self-Care 01 Condition: Good Clinical Impression: Hypotension, Low blood pressure reading, Diarrhea, Dementia - Discharge Information Referrals: PCP,None [Primary Care Provider] - Forms: ED Department Discharge Additional Instructions: Rest and stay hydrated Bring back stool sample or tick to the clinic if you continue have diarrhea Discontinue hydrochlorothiazide and close monitoring of her blood pressure and close follow-up with PCP Come back if symptom worsen - Problem List Review Problem List Initiated/Reviewed/Updated: Yes - My Orders Last 24 Hours: My Active Orders 03/17/18 11:30 Cardiac Monitoring [RC] .As Directed 03/17/18 11:31 EKG Documentation Completion [RC] ASDIRECTED EKG 12 Lead [EK] Stat - Assessment/Plan Last 24 Hours: My Active Orders 03/17/18 11:30 Cardiac Monitoring [RC] .As Directed 03/17/18 11:31 EKG Documentation Completion [RC] ASDIRECTED EKG 12 Lead [EK] Stat Plan: Rest and stay hydrated Bring back stool sample or tick to the clinic if you continue have diarrhea Discontinue hydrochlorothiazide and close monitoring of her blood pressure and close follow-up with PCP Come back if symptom worsen
--- NOTE | 2018-03-17 13:05 | CR ---
Portable chest Comparison: August 2016. Shallow lung volumes are present. There is basilar atelectasis. There are no infiltrates or effusions. The heart and vascular structures are stable. Impression: 1. No acute findings.
[2018-03-17] MEDS ORDERED: Sodium Chloride 0.9% 500 ML IV STA (13:21)
[2018-03-17 15:50] VITALS: BP 103/61
== END 2018-03-17 17:51 | disposition home or self-care (01) ==
LOC: JP.ED 11:15
DX: I95.9 Hypotension, unspecified (principal); R19.7 Diarrhea, unspecified; F03.90 Unspecified dementia, unspecified severity, without behavioral disturbance, psychotic disturbance, mood disturbance, and anxiety; I50.9 Heart failure, unspecified; Z79.899 Other long term (current) drug therapy; Z79.82 Long term (current) use of aspirin
CPT/HCPCS: 36415; 71045; 80053; 81001; 83605; 83880; 84484; 85025; 93005; 96360; 96361; 99285; J7030

== ENCOUNTER 2018-05-03 18:57 | Emergency (ER) | payer MEDICARE, BC ==
--- NOTE | 2018-05-03 19:06 | EDM.PDOC ---
ED HPI GENERAL MEDICAL PROBLEM - General Chief Complaint: Head Injury Stated Complaint: FALL VIA NORTH Time Seen by Provider: 05/03/18 19:00 Source of Information: Reports: Patient, EMS, Old Records History Limitations: Reports: Other (dementia) - History of Present Illness INITIAL COMMENTS - FREE TEXT/NARRATIVE: 83 yo male from the memory care unit of his [facility] had an unwitnessed fall just before arrival. No known LOC. Dit incur a scalp wound and complains of lower neck pain. Here with his baseline mental state via EMS with stable vitals. It is not known why he fell. Is not on any anticoagulants. Son states his father had a tetanus within the past 10 yrs. Onset: Today Onset Date: 05/03/18 Onset Time: 18:25 Duration: Minutes:, Constant Location: Reports: Head, Neck (lower), Back (upper) Quality: Reports: Ache, Dull Severity: Moderate Improves with: Reports: Rest Worsens with: Reports: Other (touching area) Context: Reports: Trauma Associated Symptoms: Reports: Nausea/Vomiting (? mild, no vomiting). 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: Other (see below) (none) Back of Neck Pain Score (Numeric/FACES): 6 - Related Data Allergies Allergy/AdvReac Type Severity Reaction Status Date / Time No Known Allergies Allergy Verified 05/03/18 19:07 Home Meds: Home Meds Multivitamin [Multi-Vitamin Daily] 1 tab PO DAILY 08/22/16 [History] Donepezil HCl [Aricept] 10 mg PO BEDTIME 08/23/16 [History] Acetaminophen [Tylenol Extra Strength] 500 mg PO DAILY 05/03/18 [History] Omeprazole 20 mg PO DAILY 05/03/18 [History] Past Medical History HEENT History: Reports: Hard of Hearing Other HEENT History: without teeth, usually wears dentures Cardiovascular History: Reports: Arrhythmia, Heart Failure, Heart Murmur, High Cholesterol Respiratory History: Reports: PE Other Respiratory History: bilateral pulmonary emboli Gastrointestinal History: Reports: GERD Psychiatric History: Reports: Dementia Hematologic History: Reports: Blood Transfusion(s) - Past Surgical History Musculoskeletal Surgical History: Reports: Hip Replacement, Other (See Below) Other Musculoskeletal Surgeries/Procedures:: traumatic injury left hip Social & Family History - Family History Family Medical History: Unobtainable - Caffeine Use Caffeine Use: Reports: Coffee ED ROS GENERAL - Review of Systems Review Of Systems: See Below Constitutional: Reports: No Symptoms HEENT: Reports: No Symptoms Respiratory: Reports: No Symptoms Cardiovascular: Reports: No Symptoms Endocrine: Reports: No Symptoms GI/Abdominal: Reports: Nausea (mild). Denies: Black Stool, Bloody Stool, Constipation, Diarrhea, Vomiting : Reports: No Symptoms Musculoskeletal: Reports: Neck Pain (lower), Back Pain (upper) Skin: Reports: Wound (non-bleeding scalp wound from his fall. ) Neurological: Reports: Confusion (chronic, not worse than usual. ). Denies: Headache, Seizure, Syncope, Trouble Speaking, Difficulty Walking, Weakness, Change in Speech, Gait Disturbance Psychiatric: Reports: No Symptoms ED EXAM, HEAD INJURY - Physical Exam Exam: See Below Exam Limited By: No Limitations General Appearance: Alert, WD/WN, No Apparent Distress Eyes: Bilateral Eye: EOMI, Normal Inspection, PERRL (small pupils bilaterally) Ears: Normal External Exam, Normal Canal, Hearing Grossly Normal, Normal TMs Nose: Normal Inspection, No Blood Throat/Mouth: Normal Inspection, Normal Lips, Normal Oropharynx, Normal Voice, No Airway Compromise Neck: Normal Inspection Respiratory: No Respiratory Distress, Lungs Clear, Normal Breath Sounds, No Accessory Muscle Use Cardiovascular: Regular Rate, Rhythm, No Edema GI/Abdominal Exam: Normal Bowel Sounds, Soft, Non-Tender Back Exam: Normal Inspection. No: CVA Tenderness (R), CVA Tenderness (L) Extremities: Normal Inspection, Normal Range of Motion, Non-Tender Neurologic: adon II-XII nml As Tested, No Motor/Sensory Deficits, Alert, Normal Mood/Affect, Oriented x 3 Skin: Normal Color, Warm/Dry, Other (2.5 cm hematoma with a superficial surface split on R temporal area of his scalp, bleeding controlled on arrival.) - [place] Coma Score Best Eye Response ([place]): (4) Open Spontaneously Best Verbal Response ([place]): (5) Oriented Best Motor Response ([place]): (6) Obeys Commands Course - Vital Signs Last Recorded V/S: Last Vital Signs Temp 36.6 C 05/03/18 19:00 Pulse 88 05/03/18 20:17 Resp 16 05/03/18 20:17 BP 159/93 H 05/03/18 20:17 Pulse Ox 97 05/03/18 20:17 - Orders/Labs/Meds Orders: Medication Orders Bacitracin (Bacitracin Oint 1 Gm) 1 dose TOP ONETIME ONE Stop: 05/03/18 20:41 Meds: Medications Generic Name Dose Route Start Last Admin Trade Name Mel PRN Reason Stop Dose Admin Bacitracin 1 dose 05/03/18 20:40 Bacitracin Oint 1 Gm TOP 05/03/18 20:41 ONETIME ONE Discontinued Medications Generic Name Dose Route Start Last Admin Trade Name [place] PRN Reason Stop Dose Admin Acetaminophen 1,000 mg 05/03/18 20:23 Tylenol Extra Strength PO 05/03/18 20:24 ONETIME ONE Ondansetron HCl 4 mg 05/03/18 19:34 05/03/18 19:39 Zofran Odt PO 05/03/18 19:35 4 mg ONETIME ONE Administration - Radiology Interpretation Free Text/Narrative:: C-spine CT-degen changes only T-spine CT-degen changes only CT Results Date: 05/03/18 Departure - Departure Time of Disposition: 21:00 Disposition: Home, Self-Care 01 Condition: Fair Clinical Impression: Fall in elderly patient, Neck pain Scalp hematoma Qualifiers: Encounter type: initial encounter Qualified Code(s): S00.03XA - Contusion of scalp, initial encounter - Discharge Information *PRESCRIPTION DRUG MONITORING PROGRAM REVIEWED*: No *COPY OF PRESCRIPTION DRUG MONITORING REPORT IN PATIENT JOHN: No Instructions: Facial or Scalp Contusion, [id number] Referrals: Eric Willard MD [Primary Care Provider] - Forms: ED Department Discharge Additional Instructions: Give acetaminophen up to 1000 mg every 6 hrs as needed for neck pain. Wear your soft cervical collar for a couple days for your neck pain. Recheck with your doctor by Tuesday afternoon to see if your collar can be discontinued. Clean the scalp wound twice daily with 1/2 water and 1/2 peroxide. Dry. Apply antibiotic ointment. Return as needed.
[2018-05-03] MEDS ORDERED: Ondansetron 4 MG Tab.DIS PO ONE (19:34)
--- NOTE | 2018-05-03 20:17 | CRLCT ---
INDICATION: fall, low neck pain CT CERVICAL SPINE WITHOUT CONTRAST TECHNIQUE: Multidetector axial CT imaging was performed through the cervical spine, without contrast. Sagittal and coronal reconstructions were generated. FINDINGS: No acute fractures are identified. Multilevel degenerative change is noted in the cervical spine, including severe disc degeneration and probable fusion at C3-4, severe degenerative disc disease at C5-6, C6-7, and C7-T1, and scattered facet joint arthrosis and hypertrophy. There is approximately 5 millimeters of anterolisthesis of C4 on C5 which is most likely chronic and degenerative in nature. Slight anterolisthesis of C2 on C3 is also likely chronic. Prevertebral soft tissues are unremarkable. Included portions of the airway and lung apices are within normal limits. IMPRESSION: 1. No fracture, acute subluxation, or other acute finding identified. 2. Advanced multilevel cervical spondylosis, as noted above. MIAH ROGERS MD [facility] [employer] Dictated by Ronni Rogers MD @ 05/03/2018 8:15:15 PM Dictated by: Ronni Rogers MD @ 05/03/2018 20:15:41 (Electronically Signed)
[2018-05-03 20:18] VITALS: BP 159/93
[2018-05-03] MEDS ORDERED: Acetaminophen 500 MG Tab PO ONE (20:23)
--- NOTE | 2018-05-03 20:23 | CRLCT ---
INDICATION: fall, upper back pain CT THORACIC SPINE WITHOUT CONTRAST TECHNIQUE: Multidetector axial CT imaging was performed through the thoracic spine, without contrast. Sagittal and coronal reconstructions were generated. FINDINGS: No acute fractures are identified. Osseous alignment is within normal limits and no subluxation is seen. Paravertebral soft tissues are unremarkable. There is diffuse mild to moderate thoracic degenerative disc disease. Incidentally noted is a right lower lobe lung calcified granuloma and left-sided pleural calcifications which may reflect prior asbestos exposure. There are scattered atherosclerotic vascular calcifications. Prior cholecystectomy is noted. There is a probable right renal cyst on the lower most slice, incompletely imaged. IMPRESSION: 1. No fracture, subluxation, or other acute finding identified. 2. 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 MIAH ROGERS MD [facility] Dictated by Ronni Rogers MD @ 05/03/2018 8:20:04 PM Dictated by: Ronni Rogers MD @ 05/03/2018 20:20:51 (Electronically Signed)
[2018-05-03] MEDS ORDERED: Bacitracin Oint 1 GM U/D Packet TOP ONE (20:40)
== END 2018-05-03 21:00 | disposition home or self-care (01) ==
LOC: JP.ED 18:57
DX: S00.03XA Contusion of scalp, initial encounter (principal); I50.9 Heart failure, unspecified; K21.9 Gastro-esophageal reflux disease without esophagitis; M54.2 Cervicalgia; Z79.899 Other long term (current) drug therapy; W19.XXXA Unspecified fall, initial encounter
CPT/HCPCS: 72125; 72128; 99284; A9270

== ENCOUNTER 2018-12-15 11:42 | Emergency (ER) | payer MEDICARE, BC ==
--- NOTE | 2018-12-15 12:44 | EDM.PDOC ---
ED HPI GENERAL MEDICAL PROBLEM - General Chief Complaint: General Stated Complaint: SOB, SWOLLEN LEGS Time Seen by Provider: 12/15/18 12:14 Source of Information: Reports: Patient, Family, RN Notes Reviewed History Limitations: Reports: No Limitations - History of Present Illness INITIAL COMMENTS - FREE TEXT/NARRATIVE: 83-year-old gentleman presents emergency department today with complaint of bilateral leg swelling as well as shortness of breath. Family members are present states this is been going on for about 6 months weight gain is about 25- 30 pounds his medication has been adjusted due to his congestive heart failure initially started hydrochlorothiazide and then was up to 120 mg twice a day and Lasix switched to Bumex 2 mg twice a day unfortunately continues to have leg swelling as well as shortness of breath which is exacerbated by exertion. Has a known history of dementia difficult to obtain review of systems from him the majority of this was taken from family members - Related Data Allergies Allergy/AdvReac Type Severity Reaction Status Date / Time No Known Allergies Allergy Verified 12/15/18 12:17 Home Meds: Home Meds Multivitamin [Multi-Vitamin Daily] 1 tab PO DAILY 08/22/16 [History] Donepezil HCl [Aricept] 10 mg PO BEDTIME 08/23/16 [History] Acetaminophen [Tylenol Extra Strength] 500 mg PO DAILY 05/03/18 [History] Omeprazole 20 mg PO DAILY 05/03/18 [History] Bumetanide 1 tab PO BID 12/15/18 [History] Potassium Chloride 1 tab PO DAILY 12/15/18 [History] QUEtiapine Fumarate [Quetiapine Fumarate] 1 tab PO DAILY 12/15/18 [History] Past Medical History HEENT History: Reports: Hard of Hearing Other HEENT History: without teeth, usually wears dentures Cardiovascular History: Reports: Arrhythmia, Heart Failure, Heart Murmur, High Cholesterol Respiratory History: Reports: PE Other Respiratory History: bilateral pulmonary emboli Gastrointestinal History: Reports: GERD Psychiatric History: Reports: Dementia Hematologic History: Reports: Blood Transfusion(s) - Infectious Disease History Infectious Disease History: Reports: Chicken Pox - Past Surgical History GI Surgical History: Reports: Esophageal Dilatation Musculoskeletal Surgical History: Reports: Hip Replacement, Other (See Below) Other Musculoskeletal Surgeries/Procedures:: traumatic injury left hip Social & Family History - Family History Family Medical History: Unobtainable - Tobacco Use Smoking Status *Q: Never Smoker - Caffeine Use Caffeine Use: Reports: Coffee - Recreational Drug Use Recreational Drug Use: No ED ROS GENERAL - Review of Systems Review Of Systems: See Below Constitutional: Reports: No Symptoms HEENT: Reports: No Symptoms Respiratory: Reports: Shortness of Breath. Denies: Cough, Sputum Cardiovascular: Reports: Dyspnea on Exertion, Edema. Denies: Chest Pain GI/Abdominal: Reports: No Symptoms : Reports: No Symptoms Musculoskeletal: Reports: Other (Bilateral leg edema) Skin: Reports: No Symptoms ED EXAM, GENERAL - Physical Exam Exam: See Below Exam Limited By: Physical Impairment General Appearance: Alert, No Apparent Distress Neck: Normal Inspection, Supple, Non-Tender, Full Range of Motion, Other (No JVD ) Respiratory/Chest: No Respiratory Distress, Lungs Clear, Normal Breath Sounds, No Accessory Muscle Use, Chest Non-Tender Cardiovascular: Regular Rate, Rhythm, No Murmur GI/Abdominal: Soft, Non-Tender Extremities: Pedal Edema, Limited Range of Motion Course - Vital Signs Last Recorded V/S: Last Vital Signs Temp 98.6 F 12/15/18 12:15 Pulse 88 12/15/18 13:10 Resp 15 12/15/18 13:10 BP 114/62 12/15/18 13:10 Pulse Ox 97 12/15/18 13:10 - Orders/Labs/Meds Labs: Laboratory Tests 12/15/18 12/15/18 12/15/18 Range/Units 12:55 12:55 12:55 WBC 9.0 (4.5-11.0) K/uL RBC 4.05 L (4.30-5.90) M/uL Hgb 12.4 (12.0-15.0) g/dL Hct 39.2 L (40.0-54.0) % MCV 97 (80-98) fL MCH 31 (27-31) pg MCHC 32 (32-36) % Plt Count 359 (150-400) K/uL Neut % (Auto) 63 (36-66) % Lymph % (Auto) 23 L (24-44) % [place] % (Auto) 12 H (2-6) % Eos % (Auto) 3 (2-4) % Baso % (Auto) 0 (0-1) % Sodium 141 (140-148) mmol/L Potassium 3.3 L (3.6-5.2) mmol/L Chloride 100 (100-108) mmol/L Carbon Dioxide 36 H (21-32) mmol/L Anion Gap 8.3 (5.0-14.0) mmol/L BUN 17 D (7-18) mg/dL Creatinine 1.1 (0.8-1.3) mg/dL Est Cr Clr Drug Dosing 53.89 mL/min Estimated GFR (MDRD) > 60 (>60) Glucose 98 (74-106) mg/dL Calcium 8.5 (8.5-10.1) mg/dL Total Bilirubin 0.3 (0.2-1.0) mg/dL AST 20 (15-37) U/L ALT 22 (12-78) U/L Alkaline Phosphatase 138 H D (46-116) U/L Troponin I < 0.017 (0.000-0.056) ng/mL NT-Pro-B Natriuret Pep (5-450) pg/mL Total Protein 7.0 (6.4-8.2) g/dL Albumin 3.3 L (3.4-5.0) g/dL Globulin 3.7 H (2.3-3.5) g/dL Albumin/Globulin Ratio 0.9 L (1.2-2.2) 12/15/18 Range/Units 12:55 WBC (4.5-11.0) K/uL RBC (4.30-5.90) M/uL Hgb (12.0-15.0) g/dL Hct (40.0-54.0) % MCV (80-98) fL MCH (27-31) pg MCHC (32-36) % Plt Count (150-400) K/uL Neut % (Auto) (36-66) % Lymph % (Auto) (24-44) % [place] % (Auto) (2-6) % Eos % (Auto) (2-4) % Baso % (Auto) (0-1) % Sodium (140-148) mmol/L Potassium (3.6-5.2) mmol/L Chloride (100-108) mmol/L Carbon Dioxide (21-32) mmol/L Anion Gap (5.0-14.0) mmol/L BUN (7-18) mg/dL Creatinine (0.8-1.3) mg/dL Est Cr Clr Drug Dosing mL/min Estimated GFR (MDRD) (>60) Glucose (74-106) mg/dL Calcium (8.5-10.1) mg/dL Total Bilirubin (0.2-1.0) mg/dL AST (15-37) U/L ALT (12-78) U/L Alkaline Phosphatase (46-116) U/L Troponin I (0.000-0.056) ng/mL NT-Pro-B Natriuret Pep 157 (5-450) pg/mL Total Protein (6.4-8.2) g/dL Albumin (3.4-5.0) g/dL Globulin (2.3-3.5) g/dL Albumin/Globulin Ratio (1.2-2.2) Departure - Departure Time of Disposition: 14:33 Disposition: Home, Self-Care 01 Condition: Fair Clinical Impression: Bilateral leg edema - Discharge Information Referrals: PCP,None [Primary Care Provider] - Forms: ED Department Discharge Additional Instructions: The cold and 2 is good for 7 days, you could loosen it or tightness as needed, please follow-up with your primary care in 3-5 days for reevaluation if not better or consider consultation with wound care Dr. Manrique call return to the emergency department worsening of symptoms - Assessment/Plan Plan: Assessment Acuity = acute Site and laterality = bilateral leg edema Etiology = probable venous insufficiency Manifestations = weight gain Location of injury = Home Lab values = CBC, CMP unremarkable other than potassium low at 3.3 consistent hypokalemia, troponin was negative, BNP also within normal limits, chest x-ray shows no acute process Plan I did review lab work with the family as well as x-ray results discussed follow- up possibly with wound care they were willing to try Coban to therefore both legs were wrapped with Coban to enable follow-up with primary care next week with possible consultation to wound care . This note was dictated using [employer] voice recognition software please call with any questions on syntax or grammar.
[2018-12-15 13:30] VITALS: BP 114/62; PULSE 88
--- NOTE | 2018-12-15 14:09 | CRLCR ---
HISTORY: Shortness of breath COMPARISON: 03/17/2018 FINDINGS: A portable erect AP view of the chest was obtained at 1331 hours. There is no change in mild linear density in the left lung base and mild patchy density in the right lower lung, probably areas of scarring from previous inflammatory disease. The rest of the chest remains clear. The heart remains normal in size. Again seen is mild tortuosity of the descending thoracic aorta. The mediastinum is otherwise normal in appearance. Again seen is prominent superior subluxation of both humeral heads indicating prominent degeneration or disruption of the rotator cuffs. IMPRESSION: Stable mild linear density in the left lung base and mild patchy density in the right lower lung, probably areas of scarring from previous inflammatory disease. No active disease seen in the chest. Dictated by Chu Sloan MD @ Dec 15 2018 2:04PM Signed by Dr. Chu Sloan @ Dec 15 2018 2:07PM
== END 2018-12-15 14:45 | disposition home or self-care (01) ==
LOC: JP.ED 11:42
DX: R60.0 Localized edema (principal); I50.9 Heart failure, unspecified; F03.90 Unspecified dementia, unspecified severity, without behavioral disturbance, psychotic disturbance, mood disturbance, and anxiety; Z86.711 Personal history of pulmonary embolism; K21.9 Gastro-esophageal reflux disease without esophagitis; Z79.899 Other long term (current) drug therapy
CPT/HCPCS: 36415; 71045; 80053; 83880; 84484; 85025; 99283; 99284-25